=== PATIENT | female | born 1970 | race Caucasian/White ===

== ENCOUNTER → 2016-06-30 | Emergency (ER) | payer OTHER ==
[~2016-06-30] VITALS: Ht 149.9 cm; Wt 68.0 kg
[~2016-06-30] MED LIST: FAMOTIDINE IV 20 MG in SODIUM CHLORIDE VIAL (PF) 10 ML IV ONE; fentaNYL 100 MCG/2 ML VIAL IV ONE
[2016-06-30 08:08] LABS: BASOPHILS % (AUTO) 0 % (0-2); EOSINOPHILS % (AUTO) 0 % (0-4); LYMPHOCYTES # (AUTO) 1.7 X10^3; MEAN CORPUSCULAR HEMOGLOBIN 28.8 PG (26.0-34.0); MEAN CORPUSCULAR VOLUME 85 FL (80-100); MEAN PLATELET VOLUME 9.2 FL (6.0-9.5); MONOCYTES # (AUTO) 0.8 X10^3; MONOCYTES % (AUTO) 9 % (3-11); NEUTROPHILS # (AUTO) 5.6 X10^3; NEUTROPHILS % (AUTO) 69 % (51-67); PLATELET COUNT 338 10^3uL (150-450); WHITE BLOOD COUNT 8.18 10^3uL (4.0-11.0)
[2016-06-30 08:22] LABS: ALBUMIN 3.7 g/dL (3.4-5.0); CALCULATED IONIZED CALCIUM 3.7 mg/dL (3.8-4.6); TOTAL PROTEIN 7.7 g/dL (6.4-8.5)
[2016-06-30 09:24] LABS: BILIRUBIN,URINE Negative (Negative); CLARITY,URINE Clear; COLOR,URINE Yellow; GLUCOSE, URINE (UA) Negative (Negative); LEUKOCYTE ESTERASE ,URINE Negative (Negative); UROBILINOGEN,URINE 0.2 mg/dL (0.2-1.0)
[2016-06-30] MEDS: fentaNYL 100 MCG/2 ML VIAL IV ONE ×2 (09:44→09:50)
--- NOTE | 2016-06-30 09:52 | NUR ---
Patient reports having repositioned and did not want dose of Fentanyl
--- NOTE | 2016-06-30 09:52 | NUR ---
Lexi lee in [facility] - 06/30/16 at 0952 by [id number] Patient [id number]
[2016-06-30 10:07] VITALS: BP 117/71
== END ==
LOC: EDUNIT# 07:29 → ED 07:31
DX: R10.13 Epigastric pain (principal)
CPT/HCPCS: 36415; 74177; 80053; 81003; 82150; 82274; 83690; 85025; 96374; 96375; 96376; 99284; J3010; J3490; J7050; Q9967; 99283

== ENCOUNTER → 2016-07-14 | Outpatient (CLI) | payer OTHER ==
[2016-07-14 12:07] VITALS: BP 116/78
== END ==
LOC: MHUC 11:19
PROVIDERS: ATTEND Physician Assistant
DX: J00 Acute nasopharyngitis [common cold] (principal)
CPT/HCPCS: 99213